=== PATIENT | male | born 1930 | race Caucasian/White ===

== ENCOUNTER 2017-03-25 10:43 | Emergency (ER) | payer OTHER ==
[~2017-03-25] VITALS: Ht 165.1 cm; Wt 64.9 kg
[~2017-03-25 10:43] MED LIST: ALPRAZOLAM0.25 MG PO; ALTACE5 MG PO; AMLODIPINE BESY10 MG; ARICEPT10 MG PO; ARICEPT5 MG; CADUET 10 MG/101 TAB PO; CLONAZEPAM1 MG; LOPRESSOR25 MG; MEGESTROL400 MG/10 PO; METFORMIN HCL500 MG PO; NAMENDA5 MG PO; NEURONTIN300 MG; NEURONTIN300 MG PO; NORVASC 10 MG TAB PO; PLAVIX75 MG; SEROQUEL25 MG PO; SERTRALINE HCL25 MG; SIMVASTATIN20 MG; SIMVASTATIN20 MG PO; TOPROL XL25 M1 PO
== END 2017-03-25 17:56 | disposition home or self-care (01) ==
LOC: ER 10:43
DX: N39.0 Urinary tract infection, site not specified (principal)

== ENCOUNTER 2017-09-05 15:22 | Emergency (ER) | payer OTHER ==
[~2017-09-05] VITALS: Ht 162.6 cm; Wt 58.5 kg
== END 2017-09-05 22:23 | disposition home or self-care (01) ==
LOC: ER 15:22
DX: G30.8 Other Alzheimer's disease (principal); F02.81 Dementia in other diseases classified elsewhere, unspecified severity, with behavioral disturbance